=== PATIENT | female | born 1935 | race Caucasian/White ===

== ENCOUNTER → 2017-07-29 | Outpatient (CLI) | payer MEDICARE ==
[~2017-07-29] MED LIST: ALLOPURINOL PO; AMBIEN10 MG PO; ANTIVERT25 MG PO; ASPIR 8181 MG PO; COLCRYS0.6 MG PO; COLESTIPOL HCL1 G1 PO; EFFER-K 20 MEQ20 MEQ PO; FLONASE16 GM; GLUCOSAMINE H1500 MG PO; HYDROCHLOROTHIA25 MG PO; LEVOXYL50 MCG PO; LOVAZA1 GM PO; PRILOSEC40 MG PO; REGADENOSON 0.4 MG/5 ML SYR IV ONE; VERAPAMIL ER180 MG PO; VITAMIN D35000 UNI1; ZESTRIL5 MG PO
--- NOTE | 2017-08-04 09:46 | Cardiology Report ---
DATE OF STUDY: July 29, 2017 LEXISCAN NUCLEAR STRESS TEST INDICATIONS: Chest pain. DESCRIPTION OF PROCEDURE: After informed consent, the patient was brought to the stress lab. She was given 11 mCi of technetium-99 Myoview, and myocardial perfusion SPECT images obtained in the horizontal long axis, short axis and vertical long axis. Subsequently, the patient was given 0.4 mg Lexiscan intravenously. The patient was given 33 mCi of technetium-99 Myoview intravenously, and myocardial perfusion SPECT images obtained in horizontal long axis, short axis, and vertical long axis. Gating images were also obtained. Patient tolerated the procedure without any complications. REPORT: Baseline EKG shows sinus rhythm at 66 beats per minute, right-pacheco axis. Normal intervals. Nonspecific ST-T changes. PACs. PARAMETERS 1. Resting heart rate is 64 beats per minute. 2. Maximum heart rate is 85 beats per minute. 3. Resting blood pressure is 191/94 mmHg. 4. Maximum blood pressure is 191/94 mmHg. REASON FOR TERMINATION: End-point attained. INTERPRETATION 1. Negative chest pain. 2. Negative for arrhythmias. 3. Blood pressure response consistent with Lexiscan. 4. No significant ST-T changes seen during Lexiscan infusion compared to baseline. 5. Analysis of SPECT images reveals uniform radioisotope uptake in all segments of myocardium without any significant perfusion defects. CONCLUSIONS 1. No evidence of significant ischemia or infarction on this study. 2. Mild hypokinesis of the left ventricle is noted. 3. Overall ejection fraction is 47%. Job#: [id number] RI
== END ==
LOC: NM 07:00
DX: R07.2 Precordial pain (principal)
CPT/HCPCS: 78452; 93017; A9502

== ENCOUNTER 2017-11-21 20:34 | Emergency (ER) | payer MEDICARE ==
[~2017-11-21] VITALS: Ht 160 cm; Wt 58.1 kg
[~2017-11-21 20:34] MED LIST changes: -REGADENOSON 0.4 MG/5 ML SYR IV ONE
--- OUTSIDE RECORDS SUMMARY | 2017-11-21 20:37 | XMS REPORT ---
Author Author [facility] Address Unknown Phone Unavailable Care Team Providers Care Anode Rebuilder Name Role Phone XOCHITL ARELLANO Unavailable Unavailable Problems This patient has no known problems. Allergies, Adverse Reactions, Alerts This patient has no known allergies or adverse reactions. Medications This patient has no known medications. Results Test Description Test Time Test Comments Text Results Atomic Results Result Comments Stress Test - Treadmill ONLY [place] [address] Patient Name : JARVIS LORENZ MR #: [id number] : 1935 Age/Sex: 82 /F Adm Physician : XOCHITL ARELLANO MD Admit Date : Location : [place] Room/Bed : __ REPORT: Cardiology Report DATE OF STUDY: July 29, 2017 LEXISCAN NUCLEAR STRESS TEST INDICATIONS: Chest pain. DESCRIPTION OF PROCEDURE: After informed consent, the patient was brought to the stress lab. She was given 11 mCi of technetium-99 Myoview, and myocardial perfusion SPECT images obtained in the horizontal long axis, short axis and vertical long axis. Subsequently, the patient was given 0.4 mg Lexiscan intravenously. The patient was given 33 mCi of technetium-99 Myoview intravenously, and myocardial perfusion SPECT images obtained in horizontal long axis, short axis, and vertical long axis. Gating images were also obtained. Patient tolerated the procedure without any complications. REPORT: Baseline EKG shows sinus rhythm at 66 beats per minute, right-pacheco axis. Normal intervals. Nonspecific ST-T changes. PACs. PARAMETERS 1. Resting heart rate is 64 beats per minute. 2. Maximum heart rate is 85 beats per minute. 3. Resting blood pressure is 191/94 mmHg. 4. Maximum blood pressure is 191/94 mmHg. REASON FOR TERMINATION: End-point attained. INTERPRETATION 1. Negative chest pain. 2. Negative for arrhythmias. 3. Blood pressure response consistent with Lexiscan. 4. No significant ST-T changes seen during Lexiscan infusion compared to baseline. 5. Analysis of SPECT images reveals uniform radioisotope uptake in all segments of myocardium without any significant perfusion defects. CONCLUSIONS 1. No evidence of significant ischemia or infarction on this study. 2. Mild hypokinesis of the left ventricle is noted. 3. Overall ejection fraction is 47%. Job#: [id number] RI Signature Date Dictated By: XOCHITL ARELLANO MD Transcribed By: CHUCKY on 08/04/17 <Electronically signed by XOCHITL ARELLANO MD><<Signature on File>>08/05/17 0469 COPY TO:
[2017-11-22 00:25] VITALS: BP 189/90
== END 2017-11-22 00:46 | disposition home or self-care (01) ==
LOC: ER 20:34
DX: N81.11 Cystocele, midline (principal)
CPT/HCPCS: 99282

== ENCOUNTER 2018-11-17 15:10 | Emergency (ER) | payer MEDICARE ==
[~2018-11-17] VITALS: Ht 160 cm; Wt 68.0 kg
--- NOTE | 2018-11-17 17:49 | Diagnostic Imaging Report ---
LOWER LEG RIGHT - 3 views HISTORY: Laceration. COMPARISON: None available. FINDINGS: Bones: No acute displaced fracture. Osseous alignment is within normal limits. Joints: The joint spaces are well-maintained. Soft tissues: No radiopaque foreign body. IMPRESSION: No radiopaque foreign body. No acute osseous abnormality. Signed by: Dr. Javier Patrick M.D. on 11/17/2018 5:45 PM
[2018-11-17] MEDS ORDERED: BACTRIM DS TAB1 EACH PO (18:57)
== END 2018-11-17 19:14 | disposition home or self-care (01) ==
LOC: ER 15:10
DX: S81.811A Laceration without foreign body, right lower leg, initial encounter (principal); W26.8XXA Contact with other sharp object(s), not elsewhere classified, initial encounter; Y93.H2 Activity, gardening and landscaping; Y92.017 Garden or yard in single-family (private) house as the place of occurrence of the external cause; I10 Essential (primary) hypertension; E78.5 Hyperlipidemia, unspecified; K21.9 Gastro-esophageal reflux disease without esophagitis; Z91.012 Allergy to eggs; Z91.048 Other nonmedicinal substance allergy status; Z82.49 Family history of ischemic heart disease and other diseases of the circulatory system
CPT/HCPCS: 99284

== ENCOUNTER 2019-06-18 11:38 | Inpatient (IN) | payer MEDICARE ==
[~2019-06-18] VITALS: Ht 160 cm; Wt 68.0 kg
[~2019-06-18 11:38] MED LIST changes: +BACTRIM DS TAB1 EACH PO
--- NOTE | 2019-06-18 12:07 | NUR ---
DR. HASTINGS/Tonie MALONE. IN WITH PT.; UPDATED RE POC/ORDRS
[2019-06-18] MEDS ORDERED: SODIUM CHLORIDE 0.9% 500ML 500 ML IV ONE (12:15)
[2019-06-18 12:21] LABS: BASOPHILS % 0.3 % (0.0-1.0); EOSINOPHILS % 0.3 % (0.0-6.0); HEMATOCRIT 34.6 % (34.2-44.1); HEMOGLOBIN 11.5 g/dL (12.0-16.0); LYMPHOCYTES # (AUTO) 0.8 (1.0-3.2); LYMPHOCYTES % 6.7 % (18.0-39.1); MEAN CORPUSCULAR HEMOGLOBIN 32.8 pg (28-32); MEAN CORPUSCULAR HGB CONC 33.2 g/dL (31-35); MEAN CORPUSCULAR VOLUME 98.6 fL (81-99); MONOCYTES # (AUTO) 1.2 (0.2-0.8); MONOCYTES % 10.2 % (4.4-11.3); NEUTROPHILS # (AUTO) 9.7 (2.1-6.9); NEUTROPHILS % 80.4 % (38.7-80.0); PLATELET COUNT 187 x10e3/uL (140-360); RED BLOOD COUNT 3.51 x10e6/uL (3.6-5.1); RED CELL DISTRIBUTION WIDTH 15.1 % (11.7-14.4)
[2019-06-18 12:38] LABS: BILIRUBIN,URINE NEGATIVE (NEGATIVE); CLARITY,URINE SL CLOUDY (CLEAR); COLOR,URINE YELLOW (YELLOW); KETONES,URINE NEGATIVE (NEGATIVE); LEUKOCYTE ESTERASE ,URINE MODERATE (NEGATIVE); NITRITE,URINE NEGATIVE (NEGATIVE); PROTEIN,URINE DIPSTICK 1+ (NEGATIVE); URINE UROBILINOGEN 0.2 mg/dL (0.2 - 1)
[2019-06-18 12:43] LABS: INR 1.03
[2019-06-18 12:44] LABS: PARTIAL THROMBOPLASTIN TIME 29.8 seconds (23.8-35.5)
[2019-06-18 12:54] LABS: ALBUMIN 2.6 g/dL (3.5-5.0); ALBUMIN/GLOBULIN RATIO 0.6 (0.8-2.0); CALCIUM 9.3 mg/dL (8.4-10.2); CREATININE, SERUM 1.4 mg/dL (0.57-1.11); MAGNESIUM 2.1 MG/DL (1.3-2.1)
[2019-06-18 12:59] LABS: BACTERIA,URINE MANY /HPF; EPITHELIAL CELLS,URINE FEW /LPF; MUCUS,URINE FEW (RARE); RBC,URINE 0-5 /HPF (0-5); WBC,URINE (MAN) 21-50 /HPF (0-5)
--- NOTE | 2019-06-18 13:00 | Diagnostic Imaging Report ---
EXAMINATION: CHEST SINGLE (PORTABLE) INDICATION: Near syncope COMPARISON: None FINDINGS: LINES/TUBES:EKG leads overlie the chest. LUNGS:The lungs are well-inflated. No focal consolidation or pulmonary edema. Subcentimeters calcified granulomas. PLEURA:No pleural effusion or pneumothorax. MEDIASTINUM:The cardiomediastinal silhouette appears normal in size and shape. Atherosclerotic calcifications of the thoracic aorta. BONES/SOFT TISSUES:No acute osseous injury. ABDOMEN:No free air under the diaphragm. Status post cholecystectomy. IMPRESSION: No focal pneumonia or pulmonary edema. Signed by: Linda Conti MD on 06/18/2019 12:56 PM
--- NOTE | 2019-06-18 13:06 | Diagnostic Imaging Report ---
ADDENDUM #1 Comparison is also made to report from MRI of the brain dated 02/27/2014. Signed by: Dr. Tom Whipple M.D. on 06/18/2019 1:[address] BRAIN WO HISTORY: Syncope COMPARISON: Report from head CT dated 02/26/2014 Technique: Noncontrast axial scans were obtained from skull base to the vertex. Coronal and sagittal reconstructions obtained from the axial data. One or more of the following dose reduction techniques were used: Automated exposure control, adjustment of the mA and/or kV according to patient size, and/or utilization of iterative reconstruction technique. DISCUSSION: Scalp/Skull: Unremarkable. Brain sulci: Mildly prominent. Ventricles: Compensatory dilatation. Extra-axial spaces: No masses or fluid collections. Carotid and vertebral artery calcifications are present. Parenchyma: Mild bilateral deep white matter hypodensity is likely chronic microvascular ischemic change. Old small lacunar insult is seen along the anterior body of the corpus callosum. There is also an old small cortical infarct along the left inferior parietal lobule (supramarginal gyrus). Punctate cortical calcification in the right occipital lobe (cuneus) may be from remote infection or inflammation. Otherwise, no masses, hemorrhage, or large vascular territory acute infarct. Dural sinuses: No abnormal densities. Sellar/Suprasellar region: Intact. Skull base: Intact. Incidental findings: Bilateral ocular lens replacement. Mild bilateral sphenoid sinus mucosal thickening IMPRESSION: 1. No acute intracranial abnormalities. 2. Mild supratentorial chronic microvascular ischemic change. Mild generalized cerebral volume loss. 3. Nonspecific old focal lacunar insult along the anterior body of the corpus callosum. 4. 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 5. Punctate right occipital cortical calcification may be from remote infection or inflammation. Signed by: Dr. Tom Whipple M.D. on 06/18/2019 1:02 PM
--- NOTE | 2019-06-18 13:11 | Diagnostic Imaging Report ---
CT CERVICAL SPINE WO HISTORY: Weakness, syncope, fall COMPARISON: None. TECHNIQUE: CT of the cervical spine without contrast. Sagittal and coronal reformations were created. One or more of the following dose reduction techniques were used: Automated exposure control, adjustment of the mA and/or kV according to patient size, and/or utilization of iterative reconstruction technique. FINDINGS: Bone demineralization limits osseous evaluation. Cervical lordosis is straightened. There is no significant scoliosis. No definite acute fracture or compression deformity is seen. The craniocervical junction is intact. No gross spinal canal masses are seen. The paravertebral and paraspinal soft tissues are unremarkable. Moderate multilevel spondylotic changes are most prominent at C6-C7. Multilevel advanced bilateral facet arthrosis is seen; the right C3-C4 facet joint is fused. There is associated grade 1 anterolisthesis of C2 on C3, C5 on C6, and C7 on T1. Mild to moderate atlantoaxial arthrosis is present as well. There is at least mild canal stenosis at C4-C5 and C6-C7 due to posterior disc osteophyte complexes. Mild to moderate bilateral carotid bulb calcified plaque is present. IMPRESSION: 1. No acute osseous abnormalities. 2. Multilevel advanced degenerative changes. Signed by: Dr. Tom Whipple M.D. on 06/18/2019 1:07 PM
[2019-06-18 13:14] LABS: THYROID STIMULATING HORMONE 3.623 uIU/mL (0.350-4.940)
[2019-06-18] MEDS ORDERED: KCL 20MEQ/.9 SOD CHL 1,000 ML IV ONE (13:15)
--- NOTE | 2019-06-18 13:23 | NUR ---
DR. HASTINGS INFORMED OF K+ OF 2.8
[2019-06-18 13:55] LABS: ANION GAP 19.8 mmol/L (8-16)
[2019-06-18 13:56] LABS: POTASSIUM 2.8 mmol/L (3.5-5.1)
[2019-06-18] MEDS ORDERED: POTASSIUM CHLORIDE 20 MEQ TAB CR PO ONE (14:00)
[2019-06-18] MEDS: PIPERACILLIN/TAZO 2.25 GM 50 ML IV SCH ×2 (14:41→20:33)
--- NOTE | 2019-06-18 15:16 | NUR ---
PT INFORMED OF ADMIT TO THE HOSPITAL AND WAITNG FOR A BED ASSIGNMENT
--- NOTE | 2019-06-18 19:20 | NUR ---
pt moved to rm [id number] at this time.
[2019-06-18 19:34] VITALS: BP 164/74
--- NOTE | 2019-06-18 19:35 | NUR ---
Received patient from the Emergency Room via stretcher. Alert and oriented. Ambulates with the walker. IV to left AC 20 gauge intact with on going IV fluid. Assisted in bed. Oriented to room. Call light within reached and encouraged to use. No complain of pain or weakness at this time.
[2019-06-18 20:36] VITALS: BP 164/74
[2019-06-18 20:50] LABS: CREATINE KINASE MB 0.9 ng/mL (0-5.0)
[2019-06-18 21:56] VITALS: BP 164/74
[2019-06-18] MEDS ORDERED: ONDANSETRON HCL INJ 2MG/ML 2ML 2 MG/ML VIAL IV PRN (22:30)
[2019-06-18] MEDS ORDERED: ACETAMINOPHEN 325 MG TAB PO PRN (22:30)
[2019-06-19] VITALS (9 sets, daily range): BP systolic 122–187; BP diastolic 64–94
--- NOTE | 2019-06-19 02:00 | NUR ---
Manual Blood pressure done 162/86 mmhg. Patient is asymptomatic.
[2019-06-19] MEDS: PIPERACILLIN/TAZO 2.25 GM 50 ML IV SCH ×4 (02:19→20:32)
[2019-06-19 06:58] LABS: BASOPHILS # (AUTO) 0.1 (0.0-0.1); BASOPHILS % 0.7 % (0.0-1.0); EOSINOPHILS # (AUTO) 0.1 (0.0-0.4); EOSINOPHILS % 0.9 % (0.0-6.0); HEMATOCRIT 29.7 % (34.2-44.1); HEMOGLOBIN 9.4 g/dL (12.0-16.0); LYMPHOCYTES # (AUTO) 0.9 (1.0-3.2); LYMPHOCYTES % 9.7 % (18.0-39.1); MEAN CORPUSCULAR HEMOGLOBIN 32.2 pg (28-32); MEAN CORPUSCULAR HGB CONC 31.6 g/dL (31-35); MEAN CORPUSCULAR VOLUME 101.7 fL (81-99); MONOCYTES # (AUTO) 1.1 (0.2-0.8); MONOCYTES % 11.5 % (4.4-11.3); NEUTROPHILS # (AUTO) 6.8 (2.1-6.9); NEUTROPHILS % 74.5 % (38.7-80.0); PLATELET COUNT 153 x10e3/uL (140-360); RED BLOOD COUNT 2.92 x10e6/uL (3.6-5.1); RED CELL DISTRIBUTION WIDTH 15.3 % (11.7-14.4)
--- NOTE | 2019-06-19 07:20 | NUR ---
PATIENT IS AWAKE, ALERT, AND STABLE CONDITION WITH NO S/S OF RESPIRATORY DISTRESS. NO PAIN VOICED. BRUISES NOTED TO BILATERAL UPPER EXTREMITIES;2 HEALING SCABS NOTED TO THE ANTERIOR LEFT FOREARM. BED ALARM APPLIED. CALL LIGHT IS WITHIN REACH, PATIENT INSTRUCTED TO CALL FOR ASSISTANCE NEEDED.
[2019-06-19 07:21] LABS: ALBUMIN 2.2 g/dL (3.5-5.0); ALBUMIN/GLOBULIN RATIO 0.6 (0.8-2.0); ANION GAP 16.7 mmol/L (8-16); CALCIUM 8.3 mg/dL (8.4-10.2); CHOL/HDL RATIO 9.2 (3.0-3.6); CREATININE, SERUM 1.16 mg/dL (0.57-1.11); POTASSIUM 3.7 mmol/L (3.5-5.1)
[2019-06-19 07:47] LABS: CREATINE KINASE MB 0.6 ng/mL (0-5.0)
[2019-06-19] MEDS ORDERED: HYDROCODONE/APAP 5MG-325MG TAB PO PRN (15:30)
[2019-06-19] MEDS ORDERED: POTASSIUM CHLORIDE 20 MEQ TAB CR PO STA (15:31)
[2019-06-19] MEDS: ENOXAPARIN SOD INJ 40 MG/0.4 ML SYR SC SCH (16:29)
[2019-06-19] MEDS: COLESTIPOL HCL 1 G TAB PO SCH (16:29)
[2019-06-19] MEDS: VERAPAMIL HCL 180 MG TBER PO SCH (16:29)
[2019-06-19] MEDS ORDERED: POTASSIUM CHLORIDE 20 MEQ TAB CR PO NR (16:30)
--- NOTE | 2019-06-19 19:13 | NUR ---
PATIENT IN STABLE CONDITION WITH NO S/S OF RESPIRATORY DISTRESS. NO PAIN VOICED. TELEMETRY APPLIED. CALL LIGHT IS WITHIN REACH, PATIENT INSTRUCTED TO CALL FOR ASSISTANCE NEEDED. REPORT GIVEN TO ONCOMING NURSE.
[2019-06-19] MEDS ORDERED: SODIUM CHLORIDE 0.9% 250ML 250 ML ONE (20:26)
[2019-06-19] MEDS ORDERED: ZOLPIDEM TARTRATE 5 MG TAB PO PRN (21:00)
[2019-06-20] VITALS (8 sets, daily range): BP systolic 137–171; BP diastolic 62–84
--- NOTE | 2019-06-20 00:02 | History and Physical ---
CHIEF COMPLAINT: Generalized weakness, near syncope. HISTORY OF PRESENT ILLNESS: An 83-year-old female who at baseline uses a walker for ambulation, comes in after having a presyncopal episode that occurred at home. According to her , the patient has been very weak for more than 10 months now. She has been very unsteady on her gait, has had multiple falls since that time for the last 10 months. The patient denies any palpitations, lightheadedness, chest pain, any slurred speech, facial droop, or any stroke-like symptoms when these occurred. reports that she kind of just falls on the ground and limp and then she gets up after a little while and start ambulating with no issues. There is no reports of the patient ever being unconscious during these episodes. No chest pain associated. No recent cough, congestion, or any fever. The patient was seen and evaluated at bedside on the medical floor. Currently, she is doing very well with no issues. She was found to have a urinary tract infection, which seems to be the contributing factor in this particular admission. REVIEW OF SYSTEMS: Pertinent positives: Mechanical falls. Pertinent negatives: Denies any chest pain, palpitation, nausea, vomiting, diarrhea, dysuria, hematuria, frequency, urgency, lightheadedness, dizziness, abdominal pain, headaches, shortness of breath, cough, congestion, fever, or any other complaints. The rest of 14-point review of systems are reviewed with the patient and are negative. ALLERGIES: TO AN IODINE. HOME MEDICATIONS: She takes: 1. Ambien 10 mg daily. 2. She takes potassium supplement. 3. Hydrochlorothiazide. 4. Colchicine. 5. Cholecalciferol. 6. Glucosamine. 7. Allopurinol. 8. Levothyroxine. 9. Omeprazole. 10. Verapamil. PAST MEDICAL HISTORY: Hypertension, history of chronic dizziness in the past, hypothyroidism. PAST SURGICAL HISTORY: Reports none. FAMILY HISTORY: Hypertension, diabetes. SOCIAL HISTORY: No drugs. No alcohol. Does not smoke. Good social support. She is . PHYSICAL EXAMINATION: VITAL SIGNS: Temperature is 99.4, pulse 88, respiratory rate is 18, blood pressure , pulse ox 95% on room air. GENERAL: Not in acute distress, alert and oriented x3. Cooperative on examination. HEENT: Head normocephalic, atraumatic. Eyes; pupils equal, round, and reactive to light bilaterally. Extraocular movements intact bilaterally. NECK: Supple. Good range of motion. Throat; no evidence of erythema or exudates in the posterior pharynx. Has poor dentition. PULMONARY: Clear to auscultation bilaterally. No wheezing, rales, or rhonchi. No crackles appreciated. CARDIOVASCULAR: Positive S1, S2. No murmurs, rubs or gallops appreciated. ABDOMEN: Soft, nondistended, nontender to palpation. Bowel sounds present. MUSCULOSKELETAL: Strength is 5/5 throughout. No evidence of any muscle deficits on examination. No weakness appreciated. NEUROLOGIC: Cranial nerves II through XII grossly intact. No evidence of any neurological deficits on exam. SKIN: Intact. Warm to touch. Good cap refill. PSYCHIATRIC: Normal affect and mood. EXTREMITIES: No edema. Good range of motion throughout. LABORATORY FINDINGS: Show white count is 9.1, hemoglobin 9.4, hematocrit is 29.7, platelets of 153. Coagulation; PT 14, INR 1, PTT 29.8. Chemistry; sodium 133, potassium 4.7, chloride 102, bicarbonate is 18, BUN is 13, anion gap of 16, creatinine is 1.16, calcium 8.3. LFTs within normal range. Troponins were all negative, albumin was 2.2. LDL was 116. TSH is 3.6. Urinalysis concerning for UTI. Microbiology shows urine culture, gram-negative rods. Blood cultures no growth today. IMAGING STUDIES: Chest x-ray showed no focal pneumonia or pulmonary edema. CT cervical spine, no acute osseous abnormalities. Multilevel advanced degenerative changes. CT of the brain, no acute intracranial abnormalities. Mild supratentorial chronic microvascular ischemic changes with mild generalized cerebral volume loss. There are some old focal lacunar infarcts. IMPRESSION: 1. Presyncopal episode with underlying generalized weakness. 2. Acute kidney injury secondary to dehydration. 3. Urinary tract infection. 4. Electrolyte abnormalities. 5. Hypothyroidism. PLAN: 1. At this time, we will go ahead and get a carotid ultrasound, 2D echo, Cardiology consultation. Continue cardiac telemetry. Troponins have been negative. Continue with cardioprotective medications with aspirin. Cardiology has been notified. In relation to acute kidney injury, improved with IV fluid hydration, now creatinine is 1.1. We will replace potassium accordingly. As per the UTI, urine cultures are pending. We will continue with broad-spectrum IV antibiotics for now with Zosyn to see if there is any resolve. She is currently afebrile, doing well with no confusion, seems like the Zosyn is working very well. 2. Fluids, electrolytes, nutrition regular diet. 3. PT, OT eval. 4. We will put her on Lovenox for DVT prophylaxis. MD MIKE Guajardo/DESIREE /[id number]
[2019-06-20] MEDS: PIPERACILLIN/TAZO 2.25 GM 50 ML IV SCH ×2 (02:32→07:52)
[2019-06-20 06:13] LABS: BASOPHILS % 0.3 % (0.0-1.0); EOSINOPHILS # (AUTO) 0.1 (0.0-0.4); EOSINOPHILS % 0.5 % (0.0-6.0); HEMATOCRIT 29.6 % (34.2-44.1); HEMOGLOBIN 9.1 g/dL (12.0-16.0); LYMPHOCYTES # (AUTO) 0.9 (1.0-3.2); LYMPHOCYTES % 7.7 % (18.0-39.1); MEAN CORPUSCULAR HEMOGLOBIN 32.5 pg (28-32); MEAN CORPUSCULAR HGB CONC 30.7 g/dL (31-35); MEAN CORPUSCULAR VOLUME 105.7 fL (81-99); MONOCYTES % 8.4 % (4.4-11.3); NEUTROPHILS % 78.6 % (38.7-80.0); PLATELET COUNT 190 x10e3/uL (140-360)
[2019-06-20] MEDS: LEVOTHYROXINE SODIUM 50 MCG TAB PO SCH (06:15)
[2019-06-20] MEDS: VERAPAMIL HCL 180 MG TBER PO SCH (06:15)
[2019-06-20 06:35] LABS: ANION GAP 16.8 mmol/L (8-16); CALCIUM 8.7 mg/dL (8.4-10.2); CREATININE, SERUM 1.09 mg/dL (0.57-1.11); POTASSIUM 3.8 mmol/L (3.5-5.1)
--- NOTE | 2019-06-20 07:10 | NUR ---
PATIENT IS ALERT TO SELF, SOME CONFUSION NOTED AND REMAINS IN STABLE CONDITION WITH NO S/S OF RESPIRATORY DISTRESS. PATIENT DENIES PAIN. PRESENT IN ROOM. PATIENT REFUSES TO WEAR TELEMETRY. BED ALARM APPLIED. CALL LIGHT IS WITHIN REACH, PATIENT INSTRUCTED TO CALL FOR ASSISTANCE NEEDED.
[2019-06-20] MEDS: OMEPRAZOLE 20 MG CAP PO SCH (07:52)
[2019-06-20] MEDS: COLESTIPOL HCL 1 G TAB PO SCH ×2 (08:00→16:31)
[2019-06-20] MEDS: CEFTRIAXONE SOD 1 GM/NS 50 ML 50 ML IV SCH (10:52)
[2019-06-20] MEDS ORDERED: HYDRALAZINE HCL 20 MG/ML VIAL IV PRN (11:00)
--- NOTE | 2019-06-20 12:54 | Consultation ---
DATE OF CONSULTATION: 06/20/2019 Cardiology Consult Note REASON FOR CONSULT: Weakness, possible syncope. CHIEF COMPLAINT: Weakness, fatigue, and falls. HISTORY OF PRESENT ILLNESS: The patient is an 83-year-old female, no previous cardiovascular history per the , who has been feeling ill at home from Friday. She has been very weak and unable to ambulate at home with frequent falls. No syncope per the over the patient. The patient is a little bit confused. No chest pain or shortness of breath. Denies fevers, chills, cough, orthopnea, lower extremity edema, or PND. REVIEW OF SYSTEMS: As per HPI, otherwise negative. PAST MEDICAL HISTORY: 1. Hypertension. 2. Dementia. 3. GERD. SOCIAL HISTORY: Does not smoke, drink, or abuse drugs. FAMILY HISTORY: Noncontributory. OUTPATIENT MEDICATIONS: Reviewed. ALLERGIES: REVIEWED. PHYSICAL EXAMINATION: VITAL SIGNS: Temperature afebrile, pulse 66, respiratory rate 18, blood pressure 138/62, and saturating 94% on room air. GENERAL: Elderly female, in no acute distress, well-developed, well-nourished. CARDIOVASCULAR: Regular rate and rhythm. No murmurs, rubs, or gallops. LUNGS: Clear to auscultation anteriorly. ABDOMEN: Soft, nontender, and nondistended. NEURO AND PSYCH: Alert and oriented to person, place, and time. Normal affect. INPATIENT MEDICATIONS: Reviewed. LABORATORY DATA: Reviewed. Notable for admission potassium of 2.8 with creatinine of 1.4, now improved to creatinine of 1 and a potassium of 3.8. Troponins negative x2. BNP 65. IMAGING DATA: Reviewed. Head CT shows no acute intracranial abnormality. Chest x-ray shows no pneumonia or pulmonary edema. TELEMETRY DATA: Reviewed. Shows normal sinus rhythm with PAC. EKG shows no acute ischemic changes. ASSESSMENT AND PLAN: 1. Weakness, possible syncope. 2. Hypertension. 3. Hypokalemia. 4. Acute kidney injury. 5. Urinary tract infection. PLAN: Echo and a carotid Doppler have been ordered, results are pending. Otherwise, the patient is doing well. We will up titrate blood pressure medicines as required. Thank you for this consult. We will continue to follow. MD BLAIR Huffman/DESIREE /[id number]
--- NOTE | 2019-06-20 13:30 | Progress Note ---
DATE: 06/20/2019 Medicine Progress Note SUBJECTIVE: The patient is doing much better today. This morning, she was a bit confused according to the nursing staff, but when I evaluated her, she was alert and oriented x3. She actually wants to go home. The patient does not ambulate very well according to the nursing staff. Physical therapy is going to come work with her. PHYSICAL EXAMINATION: VITAL SIGNS: Temperature is 97.7, pulse 66, respiratory rate is 18, blood pressure 130/62, pulse ox 94% on room air. GENERAL: Not in acute distress, alert and oriented x3. Cooperative on examination. HEENT: Head; normocephalic, atraumatic. Eyes; pupils are equal, round, and reactive to light bilaterally. Extraocular movements intact bilaterally. Throat; no evidence of erythema or exudates in the posterior pharynx. Has poor dentition. NECK: Supple. Good range of motion. PULMONARY: Clear to auscultation bilaterally. No wheezing, rales, or rhonchi. No crackles appreciated. CARDIOVASCULAR: Positive S1, S2. No murmurs, rubs or gallops appreciated. ABDOMEN: Soft, nondistended, nontender to palpation. Bowel sounds present. MUSCULOSKELETAL: Strength is 5/5 throughout. No evidence of any muscle deficits on examination. No weakness appreciated. NEUROLOGIC: Cranial nerves 2 through 12 grossly intact. No evidence of any neurological deficits on exam. SKIN: Intact. Warm to touch. Good cap refill. PSYCHIATRIC: Normal affect and mood. EXTREMITIES: No edema. Good range of motion throughout. LABORATORY FINDINGS: Show white count of 11.3, hemoglobin 9.1, hematocrit 29.6, platelets of 190. Chemistry; sodium 136, potassium 3.8, chloride 106, bicarb 17, BUN is 9, creatinine is 1, glucose 123, calcium is 8.7. Troponins were all negative. LFTs within normal range. LDL is 116. MICROBIOLOGY: Blood cultures no growth. Urine cultures shows E coli, which we will switch Zosyn to IV Rocephin. IMAGING STUDIES: Carotid ultrasound is pending. A 2D echo is pending. Cardiology is pending. IMPRESSION: 1. Presyncopal episode with underlying generalized weakness. 2. Acute kidney injury secondary to dehydration, improved. 3. Urinary tract infection. 4. Electrolyte abnormalities. 5. Hypothyroidism. PLAN: At this time, pending carotid ultrasound, 2D echo and Cardiology evaluation. Cardiac enzymes were found to be negative on cardiac telemetry. As for her UTI, I did switch the IV antibiotics to Rocephin now, which is sensitive to. Get labs in the morning. Regular diet. I still need PT/OT evaluation as the family reports that she has generalized weakness and continues to fall down at home. We will continue with Lovenox for DVT prophylaxis. Hopefully, if she gets cleared by Cardiology and works well with PT, she can probably discharge tomorrow. If not, she may need further assessment like shelter, but the patient refuses. MD MIKE Guajardo/DESIREE /[id number]
[2019-06-20] MEDS: ENOXAPARIN SOD INJ 40 MG/0.4 ML SYR SC SCH (16:31)
--- NOTE | 2019-06-20 19:17 | NUR ---
PATIENT IS IN STABLE CONDITION WITH NO S/S OF RESPIRATORY DISTRESS- NO PAIN VOICED. THREE SIDE RAILS UP AND BED ALARM APPLIED. CALL LIGHT IS WITHIN REACH, PATIENT INSTRUCTED TO CALL FOR ASSISTANCE NEEDED. REPORT GIVEN TO ONCOMING NURSE.
[2019-06-20] MEDS ORDERED: CYCLOBENZAPRINE10 MG PO (19:37)
[2019-06-20] MEDS ORDERED: VIT D3 PO (19:37)
[2019-06-20] MEDS ORDERED: ZETIA10 MG PO (19:37)
[2019-06-20] MEDS ORDERED: GABAPENTIN300 MG PO (19:37)
[2019-06-20] MEDS ORDERED: BUDESONIDE EC3 MG PO (19:37)
[2019-06-20] MEDS ORDERED: ZOLPIDEM TARTRAT5 MG PO (19:37)
[2019-06-20] MEDS ORDERED: HYDRALAZINE HCL10 MG PO (19:37)
[2019-06-20] MEDS ORDERED: LASIX20 MG PO (19:37)
--- NOTE | 2019-06-20 22:00 | NUR ---
Patient still refused telemetry.
--- NOTE | 2019-06-20 22:00 | NUR ---
BP IMPROVED 154/80 [facility]
[2019-06-21 00:35] VITALS: BP 190/84
[2019-06-21] MEDS: LEVOTHYROXINE SODIUM 50 MCG TAB PO SCH (05:33)
[2019-06-21] MEDS: VERAPAMIL HCL 180 MG TBER PO SCH (05:34)
[2019-06-21 05:37] VITALS: BP 169/69
[2019-06-21 06:20] LABS: HEMATOCRIT 29.2 % (34.2-44.1); HEMOGLOBIN 9.1 g/dL (12.0-16.0); MEAN CORPUSCULAR HEMOGLOBIN 31.9 pg (28-32); MEAN CORPUSCULAR HGB CONC 31.2 g/dL (31-35); MEAN CORPUSCULAR VOLUME 102.5 fL (81-99); PLATELET COUNT 223 x10e3/uL (140-360); RED BLOOD COUNT 2.85 x10e6/uL (3.6-5.1); RED CELL DISTRIBUTION WIDTH 15.4 % (11.7-14.4)
[2019-06-21 06:38] LABS: ANION GAP 17.1 mmol/L (8-16); CALCIUM 8.5 mg/dL (8.4-10.2); CREATININE, SERUM 0.98 mg/dL (0.57-1.11); POTASSIUM 3.1 mmol/L (3.5-5.1)
--- NOTE | 2019-06-21 07:00 | NUR ---
received am report and rounds done. pt is alert resting supine in bed, no s/s of distress. call light within reach and bed safety implemented. instructed pt to call RN for help.
[2019-06-21 07:37] VITALS: BP 140/66
[2019-06-21 09:00] VITALS: BP 140/66
[2019-06-21] MEDS: OMEPRAZOLE 20 MG CAP PO SCH (09:28)
[2019-06-21] MEDS: CEFTRIAXONE SOD 1 GM/NS 50 ML 50 ML IV SCH (09:29)
[2019-06-21] MEDS: COLESTIPOL HCL 1 G TAB PO SCH ×2 (09:29→17:35)
[2019-06-21] MEDS ORDERED: POTASSIUM CHLORIDE 20 MEQ TAB CR PO STA (09:36)
[2019-06-21] MEDS ORDERED: POTASSIUM CHLORIDE 20 MEQ TAB CR PO ONE (10:00)
[2019-06-21 11:34] VITALS: BP 156/67
--- NOTE | 2019-06-21 14:54 | Progress Note ---
DATE: 06/21/2019 Medicine Progress Note SUBJECTIVE: The patient is doing much better today, with no issues. She is not confused. She is alert and oriented x4. She is awaiting to be discharged. She does not want to go to [facility] facility despite her ambulation is very weak and poor. also agreed. He does not want her to go to [facility]. Once the echo and carotid ultrasound results have been received, the patient can be discharged. PHYSICAL EXAMINATION: VITAL SIGNS: Temperature is 96.5, pulse 68, respiratory rate is 20, blood pressure 156/67, and pulse ox 96% on room air. GENERAL: Not in acute distress. Alert and oriented x3. Cooperative on examination. HEENT: Head; normocephalic, atraumatic. Eyes; pupils are equal, round, and reactive to light bilaterally. Extraocular movements intact bilaterally. Throat; no evidence of erythema or exudates in the posterior pharynx. Has poor dentition. NECK: Supple. Good range of motion. PULMONARY: Clear to auscultation bilaterally. No wheezing, no rales, no rhonchi, no crackles appreciated. CARDIOVASCULAR: Positive S1 and S2. No murmurs, rubs, or gallops appreciated. ABDOMEN: Soft, nondistended, and nontender to palpation. Bowel sounds present. MUSCULOSKELETAL: Strength is 5/5 throughout. No evidence of any muscle deficits on examination. No weakness appreciated. NEUROLOGIC: Cranial nerve II through XII grossly intact. No evidence of any neurological deficits on exam. SKIN: Intact. Warm to touch. Good cap refill. PSYCHIATRIC: Normal affect and mood. EXTREMITIES: No edema. Good range of motion throughout. LABORATORY FINDINGS: Show white count was 11.9, hemoglobin 9.1, hematocrit is 29, platelets of 223. Coagulation; PT 14, INR 1, PTT 29. Chemistry; sodium 135, potassium 3.1, chloride 104, bicarbonate 17, BUN is 7, creatinine is 0.98, glucose is 99, calcium 8.5. Urinalysis noted. MICROBIOLOGY: Urine culture positive for E coli. Blood cultures, no growth to-date. IMAGING STUDIES: Pending 2D echo and carotid ultrasound. IMPRESSION: 1. Presyncopal episode with underlying generalized weakness, likely secondary to urinary tract infection. 2. Acute kidney injury secondary to dehydration, resolved. 3. Urinary tract infection. 4. Electrolyte abnormalities. 5. Hypothyroidism. PLAN: At this time, I am still awaiting on a carotid ultrasound and 2D echo results. I read Cardiology's note, still pending on carotid ultrasound and 2D echo. Once those results are back and are negative, she will be cleared from Cardiology standpoint. As for her UTI, she is doing well. She will be discharged on oral Keflex for 10 more days. Continue with regular diet. Work with PT and OT daily. She refuses [facility] facility despite me trying to convince the patient and her , and they continue to refuse. Continue with Lovenox for DVT prophylaxis. Otherwise, once her carotid ultrasound and echo are back and they are normal, and has been cleared by Cardiology, the patient can be discharged to home with home health, home PT and OT, since they refused [facility] facility placement. MD MIKE Guajardo/DESIREE /[id number]
[2019-06-21 16:23] VITALS: BP 132/70
[2019-06-21] MEDS: ENOXAPARIN SOD INJ 40 MG/0.4 ML SYR SC SCH (17:35)
--- NOTE | 2019-06-21 18:20 | NUR ---
Dr. Sandy saw the pt and has cleared the pt to go home from cardiology standpoint. contacted Dr. Ardon to try and get discharge order
--- NOTE | 2019-06-21 21:25 | Progress Note ---
DATE: Cardiology Progress Note SUBJECTIVE: The patient is feeling better. He denies any chest pain, shortness of breath, or dizziness. OBJECTIVE: VITAL SIGNS: Temperature is 96.5, heart rate 68, respirations are 20, blood pressure is 132/70, oxygen saturation 96% on room air. GENERAL: Well appearing no apparent distress. CARDIOVASCULAR: Regular rate and rhythm. LUNGS: Clear to auscultation. ABDOMEN: Soft, nontender, nondistended. EXTREMITIES: No clubbing, cyanosis, or edema. LABORATORY DATA: Reviewed. Echocardiogram showed preserved left ventricular systolic function. IMPRESSION: Weakness, syncope, hypertension, hypokalemia, acute kidney injury, urinary tract infection. RECOMMENDATIONS: Echocardiogram showed preserved left ventricular systolic function. No significant valvular abnormalities. Carotid Doppler showed moderate right carotid stenosis. Recommend a CT angiogram of the neck. The patient would like to be discharged this can be set up as an outpatient. DO NOEL Caraballo/MODL /[id number]
--- NOTE | 2019-06-22 12:05 | Discharge Summary ---
FINAL DISCHARGE DIAGNOSES: 1. Presyncopal episode. 2. Generalized weakness, likely secondary to urinary tract infection. 3. Acute kidney injury secondary to dehydration, resolved. 4. Urinary tract infection. 5. Electrolyte abnormalities. 6. Hypothyroidism. 7. Moderate right-sided carotid stenosis, which the patient refused to have any further intervention here at the hospital stay. CONSULTANTS: Cardiology. PHYSICAL EXAMINATION: VITAL SIGNS: Temperature is 98.2, pulse 82, respiratory rate is 18, blood pressure 132/70, and pulse ox 96% on room air. LABORATORY FINDINGS: Show white count was 11, hemoglobin 9.1, hematocrit was 29, MCV 102.5, and platelets was 223. Coagulation; PT 14, INR 1, and PTT 29. Chemistry; sodium 135, potassium 3.1 replaced, chloride 104, bicarb 17, anion gap of 17, BUN is 7, creatinine is 0.98, glucose 99, and calcium 8.5. LFTs were normal. Troponins were negative. Albumin was 2.2. LDL was 116. TSH was 3.6. Urinalysis was consistent with UTI. MICROBIOLOGY: Urine culture consistent with E. coli, discharged on oral Keflex. Blood cultures were negative. IMAGING STUDIES: Chest x-ray, no focal pneumonia or pulmonary edema. CT cervical spine, no acute osseous abnormalities. Multilevel advanced degenerative changes. CT brain, no acute intracranial abnormality. Nonspecific old focal lacunar insult seen. Carotid Doppler consistent with right-sided moderate stenosis needing further intervention, but the patient refused. HOSPITAL COURSE: This is an 83-year-old female, who came into the emergency room with underlying multiple falls that has been going on for several months now according to the at bedside. reports that she has been doing this for more than 10 to 12 months now, having some mechanical falls and very weak. Of note, this time she came in with a presyncopal episode with generalized weakness. She was found to be dehydrated requiring IV fluid hydration with much improvement. She was also found to have a urinary tract infection and was treated accordingly with IV antibiotics as well as oral Keflex for 10 more days upon discharge. Electrolytes were replaced accordingly. While here, Cardiology was consulted for presyncopal episode. Carotid Doppler was consistent with the moderate right-sided internal carotid stenosis, needed further workup, but the patient refused and wanted to do an outpatient followup in his office for CTA of the neck. A 2D echo was performed shows a preserved left ventricular systolic function with no significant valvular abnormalities. The patient was cleared for discharge by Cardiology. The patient refused [facility] facility placement despite recommended by physical therapy. Instead, home health, home PT/OT was arranged for her as per her wishes. I discussed with her the importance of going to [facility] due to her multiple mechanical falls, but she continued to refuse. We also discussed with her the importance of having a CT of the neck, but the patient refused instead and want to follow up with Cardiology as an outpatient. The patient has been cleared for discharge to home. We discussed this plan of care with the patient, the patient's as well as the nursing staff present at bedside, and they all verbalized understanding. On the day of discharge, vital signs were stable, labs reviewed and stable. The patient was seen and evaluated, and examined thoroughly on the day of discharge, no other complaints. The patient verbalized understanding and agrees to plan of care to follow up accordingly as an outpatient with the primary care physician in 1 week and Cardiology in 2 weeks' time. I also discussed with the patient about she takes significant amount of sedative medications and that these medications need to be weaned off, but the patient refused and they want to follow up with the PCP in terms of weaning off some of these medications. I feel like this is a contributing factor due to her mechanical falls making her very sedated and very sleepy, but the patient refused any adjustments at this time. MEDICATIONS: See medication reconciliation form. DISPOSITION: Home. CONDITION: Stable. DIET: Heart healthy. In the event of any worsening symptoms, the patient was advised to come back to the ED for further evaluation. Discharge summary took greater than 35 minutes. MD MIKE Guajardo/DESIREE /[id number]
== END 2019-06-21 19:33 | disposition home or self-care (01) | DRG 690 ==
LOC: ER 11:38 → ERHOLD 13:14 → MED/SURG3 19:34
PROVIDERS: ADMIT Internal Medicine; ATTEND Internal Medicine
DX: N39.0 Urinary tract infection, site not specified (principal); N17.9 Acute kidney failure, unspecified; B96.20 Unspecified Escherichia coli [E. coli] as the cause of diseases classified elsewhere; E87.8 Other disorders of electrolyte and fluid balance, not elsewhere classified; E03.9 Hypothyroidism, unspecified; I65.21 Occlusion and stenosis of right carotid artery; E86.0 Dehydration; Z91.81 History of falling; I10 Essential (primary) hypertension; F03.90 Unspecified dementia, unspecified severity, without behavioral disturbance, psychotic disturbance, mood disturbance, and anxiety; K21.9 Gastro-esophageal reflux disease without esophagitis; E87.6 Hypokalemia
CPT/HCPCS: 36415; 70450; 71045; 72125; 80048; 80053; 80061; 81001; 82550; 82553; 83735; 83880; 84443; 84484; 85007; 85025; 85027; 85610; 85730; 87040; 87086; 87186; 93005; 93306; 93880; 99284; J0360; J0696; J1650; J2543; J7040; J7050

== ENCOUNTER → 2020-03-24 | Outpatient (CLI) | payer MEDICARE ==
[~2020-03-24] MED LIST changes: +BUDESONIDE EC3 MG PO; +CYCLOBENZAPRINE10 MG PO; +DIPHENHYDRAMINE HCL 25 MG CAP ONE; +GABAPENTIN300 MG PO; +HYDRALAZINE HCL10 MG PO; +IOPAMIDOL 370 MG/ML 200 ML INFUS..BTL INJ ONE; +LASIX20 MG PO; +SODIUM CHLORIDE 0.9% 500ML 500 ML ONE; +SODIUM CHLORIDE 0.9% 50ML 50 ML ONE; +VIT D3 PO; +ZETIA10 MG PO; +ZOLPIDEM TARTRAT5 MG PO
[2020-03-24 16:57] LABS: CREATININE, SERUM 1.4 mg/dL (0.57-1.11)
--- NOTE | 2020-03-28 09:25 | Diagnostic Imaging Report ---
Abdomen and Pelvis CTA with RUNOFF PROTOCOL WITH IV CONTRAST. INDICATION: Peripheral artery disease COMPARISON: None. TECHNIQUE: Abdomen and pelvis and lower extremities were scanned utilizing a multidetector helical scanner from the lung base to the toes before and after administration of IV contrast. Coronal and sagittal reformations were obtained. 3D post-processing of the images was performed, and the post-processed images were used in interpretation. CTA runoff protocol was performed. IV CONTRAST: 100mL of Isovue 370 ORAL CONTRAST: None RADIATION DOSE: Total DLP: 587 mGy*cm FINDINGS: VESSELS: There are moderate calcified and noncalcified atherosclerotic plaques in the aorta and its major branches. There is no evidence of a flap within the aorta to suggest a dissection. The celiac artery, superior mesenteric artery, and inferior mesenteric artery are patent. There is a single right renal artery and a single left renal artery, both of which are patent. Right lower extremity: Atherosclerotic calcifications of the proximal right common iliac artery with at least moderate associated luminal narrowing and mild poststenotic dilation. The common femoral artery, superficial femoral artery, and popliteal artery are patent. Poor contrast opacification of the infrapopliteal vessels limits evaluation of runoff vasculature. There is little to no opacification of the tibial vessels which demonstrate multifocal scattered areas of atherosclerotic calcification. Left lower extremity: The common femoral artery, superficial femoral artery, and popliteal artery are patent, and there is a patent 3-vessel run-off. Poor contrast opacification of the infrapopliteal vessels limits evaluation of runoff vasculature. There is little to no opacification of the tibial vessels which demonstrate multifocal scattered areas of atherosclerotic calcification. NON-VASCULAR: LOWER THORAX: Dependent right lower lobe atelectasis. HEPATOBILIARY: Diffuse hepatic steatosis. No focal liver lesions. No biliary ductal dilation. Status post cholecystectomy. SPLEEN: No splenomegaly. PANCREAS: No focal masses or ductal dilatation. ADRENALS: No adrenal nodules. KIDNEYS/URETERS: No hydronephrosis or hydroureter. No solid renal mass lesions. No renal calculi. Left renal cysts measure up to 2.3 cm. PELVIC ORGANS/BLADDER: Unremarkable. PERITONEUM / RETROPERITONEUM: No free air or fluid. LYMPH NODES: No lymphadenopathy. GI TRACT: No abnormal bowel thickening. No bowel obstruction. Prominent stool-filled cecum. BONES AND SOFT TISSUES: No acute fracture or dislocation. Diffuse osteopenia. IMPRESSION: Atherosclerotic calcifications of the proximal right common iliac artery with at least moderate associated luminal narrowing. There Little to no opacification of the bilateral infrapopliteal vessels which demonstrate multifocal scattered areas of atherosclerotic calcification. No aortic dissection or aneurysm. Hepatic steatosis. Signed by: Linda Conti MD on 03/28/2020 9:22 AM
== END ==
LOC: CT 15:58
PROVIDERS: ATTEND Internal Medicine Cardiovascular Disease
DX: I70.71 Atherosclerosis of other type of bypass graft(s) of the extremities with intermittent claudication (principal)
CPT/HCPCS: 36415; 75635; 82565; 84520; 96360; J7040; Q9967